=== PATIENT | male | born 2000 | race Caucasian/White ===

== ENCOUNTER 2021-06-06 11:43 | Emergency (ER) | payer OTHER ==
[~2021-06-06] VITALS: Ht 172.7 cm; Wt 63.5 kg
[2021-06-06] MEDS ORDERED: PROVENTIL HFA6.7 GM INH (12:18)
== END 2021-06-06 14:16 | disposition home or self-care (01) ==
LOC: ED 11:43
DX: J45.901 Unspecified asthma with (acute) exacerbation (principal); Z88.0 Allergy status to penicillin; Z88.1 Allergy status to other antibiotic agents